=== PATIENT | male | born 1975 | race Caucasian/White ===

== ENCOUNTER 2020-04-29 17:46 | Emergency (ER) | payer SELFPAY ==
[2020-04-29 17:48] VITALS: BMI 28.4
[2020-04-29 17:56] VITALS: BP 120/89; PULSE 89; RESP 16; TEMP 36.4; O2SAT 96
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
[2020-04-29 18:26] VITALS: BP 119/74; PULSE 89; RESP 14; O2SAT 98
[2020-04-29 18:30] LABS: Basophils # 0.1 10^3/uL (0.0-0.1); Basophils % 0.5 %; Eosinophils # 0.1 10^3/uL (0.0-0.8); Eosinophils % 1.2 %; Hematocrit 43.1 % (42.0-52.0); Hemoglobin 14.7 g/dL (11.7-16.6); Lymphocytes % 17.4 %; Mean Corpuscular HGB Conc 34.1 g/dL (30.0-36.0); Mean Corpuscular Hemoglobin 31.1 pg (28.0-34.0); Mean Corpuscular Volume 91.3 fL (80-94); Mean Platelet Volume 9.9 fL (7.4-10.4); Monocytes % 8.6 %; Neutrophils # 8.1 10^3/uL (1.8-7.7); Neutrophils % 72.1 %; Nucleated Red Blood Cells % 0 %; Platelet Count 211 10^3/cmm (130-400); Red Blood Count 4.72 10^6/uL (4.1-5.3); Red Cell Distribution Width 12.5 % (12.1-15.1); White Blood Count 11.3 10^3/uL (4.0-10.0)
[2020-04-29 18:44] LABS: Alanine Aminotransferase 103 U/L (0-41); Albumin Level 4.5 g/dL (3.5-5.2); Alkaline Phosphatase 93 IU/L (40-130); Anion Gap 15.7 (5-19); Aspartate Amino Transferase 67 U/L (0-40); Blood Urea Nitrogen 18 mg/dL (6-20); Calcium 9.3 mg/dL (8.5-10.5); Carbon Dioxide 23 mmol/L (22-29); Chloride 103 mmol/L (98-107); Creatinine Clr Calc Pharmacy 148.6923; Globulin 2.8 g/dL (1.3-4.6); Glomerular Filtration Rate 121.4 mL/min (90-130); Glucose 112 mg/dL (65-115); Osmolality Calculated 283 mOsm/kg (285-295); Potassium 3.7 mmol/L (3.5-5.1); Sodium 138 mmol/L (136-145); Total Bilirubin 0.7 mg/dL (0.15-1.2); Total Protein 7.3 g/dL (6.6-8.7)
[2020-04-29 18:50] LABS: Alcohol Level < 10 mg/dL (0-10)
--- NOTE | 2020-04-29 19:11 | PC.NURSE ---
Addendum entered by Kelly Metzger 04/29/20 19:12: Dr notified Original Note: Pt removed C-collar prior to transport to CT scan
[2020-04-29 19:21] LABS: Urine Appearance SL Hazy (CLEAR); Urine Color Straw (Yellow)
[2020-04-29 19:22] LABS: Add Urine Microscopic? YES; Bilirubin Urine 1+ (NEGATIVE); Blood Urine 3+ (Negative); Glucose Urine UA Norm (Normal); Ketones Urine Negative (Negative); Leukocyte Esterase Urine Negative (Negative); Nitrate Urine Negative (Negative); Protein Urine Trace (Negative); Specific Gravity, Urine 1.025 (1.005-1.030); Urobilinogen Urine 4 mg/dL (Negative); pH Urine 5 (5-7)
[2020-04-29 19:26] LABS: RBC Urine 50-80 /hpf (0-2); WBC Urine 0-4 /hpf (0-5)
[2020-04-29 19:27] LABS: Bacteria Urine TRACE; Mucus Urine 1+; Squamous Epithelial Cell Urine 0-4 (0-5)
[2020-04-29 19:28] LABS: Add Urine Culture? Yes
[2020-04-29 19:31] LABS: Amphetamines Screen Urine Positive (Negative); Barbiturates Screen Urine Negative (Negative); Benzodiazepines Screen Urine Positive (Negative); Cocaine Screen Urine Negative (Negative); Opiate Screen Urine Positive (Negative); PCP Screen Urine Negative (Negative); THC Screen Urine Positive (Negative)
[2020-04-29] MEDS: ketorolac 30 mg/mL INJ IVP (20:10)
--- NOTE | 2020-04-29 20:17 | PC.NURSE ---
patient requesting food and pain medications. patient states he wants to leave due to inability to eat until medical results are finalized and read. Dr. Vyas spoke with patient. patient alert and oriented x 4. patient signed AMA form and left with family. patient refused vital signs prior to leaving.
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
== END 2020-04-29 20:19 | disposition left against medical advice (07) ==
LOC: ER 18:17
PROVIDERS: Emergency Provider Family Medicine
DX: S00.01XA Abrasion of scalp, initial encounter (principal); S80.812A Abrasion, left lower leg, initial encounter; S40.819A Abrasion of unspecified upper arm, initial encounter; F19.10 Other psychoactive substance abuse, uncomplicated; F17.210 Nicotine dependence, cigarettes, uncomplicated; Z53.21 Procedure and treatment not carried out due to patient leaving prior to being seen by health care provider; V49.40XA Driver injured in collision with unspecified motor vehicles in traffic accident, initial encounter
CPT/HCPCS: 12345; 70450; 70486; 71250; 72125; 72128; 72131; 74176; 80053; 80306; 80307; 81001; 85025; 87086; 96374; 96375; 99284; J1885